=== PATIENT | male | born 1970 | race African-American/Black ===

== ENCOUNTER 2018-10-19 12:55 | Emergency (ER) | payer BC ==
[~2018-10-19] VITALS: Ht 177.8 cm; Wt 110.2 kg
[2018-10-19] MEDS ORDERED: LISINOPRIL-HCT1 EAC2 ORAL (13:04)
[2018-10-19 13:30] VITALS: BP 148/83
[2018-10-19] MEDS ORDERED: HYDROcodone/Acetamin 10/325 tab ORAL ONE (13:30)
[2018-10-19] MEDS ORDERED: Isovue-300 100ml vial INJ PRN (13:30)
--- NOTE | 2018-10-19 13:30 | NUR ---
ED Nurse Note: pt walked in due to pain on the left groin started 3 days ago and got worsen today, denies trauma. jose enrique muñoz on bedside. will continue to monitor.
--- NOTE | 2018-10-19 13:40 | NUR ---
ED Nurse Note: pt able to give urine, blood drawn and sent to lab. pt was able to tolerate po emds and ivf started. will continue to monitor.
--- NOTE | 2018-10-19 13:44 | NUR ---
ED Nurse Note: build technician on bedside.
[2018-10-19 13:55] LABS: APPEARANCE,URINE CLEAR; BILIRUBIN, URINE NEGATIVE (NEGATIVE); COLOR,URINE PALE YELLOW; GLUCOSE, URINE (UA) NEGATIVE (NEGATIVE); KETONES,URINE NEGATIVE (NEGATIVE); LEUKOCYTE ESTERASE ,URINE NEGATIVE (NEGATIVE); NITRITE,URINE NEGATIVE (NEGATIVE); PH,URINE 5 (4.5-8.0); PROTEIN,URINE NEGATIVE (NEGATIVE); UROBILINOGEN,URINE NORMAL MG/DL (0.0-1.0)
[2018-10-19 13:56] LABS: BASOPHILS % (AUTO) 0.6 % (0.0-2.0); EOSINOPHILS % (AUTO) 1.1 % (0.0-3.0); HEMATOCRIT 39.5 % (42.0-52.0); HEMOGLOBIN 12.9 G/DL (14.2-18.0); LYMPHOCYTES % (AUTO) 17.8 % (20.0-45.0); MEAN CORPUSCULAR VOLUME 84 FL (80-99); MONOCYTES % (AUTO) 11.2 % (1.0-10.0); NEUTROPHILS % (AUTO) 69.4 % (45.0-75.0); PLATELET COUNT 183 K/UL (150-450); RED BLOOD COUNT 4.68 M/UL (4.70-6.10); RED CELL DISTRIBUTION WIDTH 13.5 % (11.6-14.8); WHITE BLOOD COUNT 12.4 K/UL (4.8-10.8)
[2018-10-19 14:08] LABS: ANION GAP 4 mmol/L (5-15); BLOOD UREA NITROGEN 11 mg/dL (7-18); CALCIUM 9.4 MG/DL (8.5-10.1); CARBON DIOXIDE 27 MMOL/L (21-32); CHLORIDE 101 MMOL/L (98-107); POTASSIUM 3.8 MMOL/L (3.5-5.1); SODIUM 132 MMOL/L (136-145)
[2018-10-19 14:12] LABS: ALANINE AMINOTRANSFERASE 35 U/L (12-78); ALBUMIN 3.3 G/DL (3.4-5.0); ALBUMIN/GLOBULIN RATIO 0.7 (1.0-2.7); ALKALINE PHOSPHATASE 98 U/L (46-116); ASPARTATE AMINO TRANSFERASE 25 U/L (15-37); BILIRUBIN,TOTAL 0.5 MG/DL (0.2-1.0)
--- NOTE | 2018-10-19 14:24 | NUR ---
ED Nurse Note: pt went to ct with tech
--- NOTE | 2018-10-19 14:25 | Emergency Room Report ---
History of Present Illness General Chief Complaint: Pain Source: Patient Present Illness HPI 47 YO male presents to the ED c/o 12/08 in severity pain, swelling tenderness to the lower left buttock with radiation to the left testicle with testicular swelling and fullness x 2 days. pt. denies fevers or chills. 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 PT. reports recent unprotected intercourse, but denies penile discharge, dysuria, LAD, or urinary frequency/ urgency or hematuria. Pt. denies abdominal pain. Denies constipation or diarrhea. Allergies: Uncoded Allergies: DOXICYCLIN (Allergy, Unknown, 10/19/18) Patient History Past Medical History: see triage record, HTN Past Surgical History: none Pertinent Family History: none Reviewed Nursing Documentation: PMH: Agreed; PSxH: Agreed Nursing Documentation-PMH Past Medical History: No History, Except For Hx Hypertension: Yes Review of Systems All Other Systems: negative except mentioned in HPI Physical Exam Vital Signs Date Time Temp Pulse Resp B/P (MAP) Pulse Ox O2 Delivery O2 Flow Rate FiO2 10/19/18 12:57 98.2 105 19 148/83 (104) 93 Room Air Sp02 EP Interpretation: reviewed, normal General Appearance: no apparent distress, alert, GCS 15, non-toxic Head: normocephalic, atraumatic Eyes: bilateral eye normal inspection, bilateral eye PERRL ENT: hearing grossly normal, normal voice Neck: full range of motion Respiratory: chest non-tender, lungs clear, normal breath sounds, speaking full sentences Cardiovascular #1: regular rate, rhythm, no edema Gastrointestinal: normal bowel sounds, non tender, soft, non-distended, no guarding Rectal: deferred, tenderness - Left buttock in the perineum area 2cm deep palpable induration. , other Genitourinary: normal inspection, no CVA tenderness, penis normal, other - Testicular swelling, positive phren's sign, cremasteric reflex is intact. Musculoskeletal: back normal, gait/station normal, normal range of motion, non- tender Neurologic: alert, oriented x3, responsive, motor strength/tone normal, sensory intact, speech normal, grossly normal Psychiatric: judgement/insight normal Skin: other - palpable ST induration approx 2cm in the left buttock in the perineum area. Medical Decision Making PA Attestation Dr. Gonzalez is my supervising Physician whom patient management has been discussed with. Diagnostic Impression: Primary Impression: Epididymitis Additional Impression: Localized soft tissue swelling ER Course 47 YO male presents to the ED c/o 12/08 in severity pain, swelling tenderness to the lower left buttock with radiation to the left testicle with testicular swelling and fullness x 2 days. pt. denies fevers or chills. 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 PT. reports recent unprotected intercourse, but denies penile discharge, dysuria, LAD, or urinary frequency/ urgency or hematuria. Pt. denies abdominal pain. Denies constipation or diarrhea. Ddx considered but are not limited to perianal abscess/fistula, ST abscess, hydrocele, testicular torsion, epididymitis, orchitis, abscess, hernia Vital signs: are WNL, pt. is afebrile H&PE are most consistent with testicular torsion as cremasterics reflex is absent and then sign is negative there is no relief upon elevation ORDERS: - EKG: NSR [address] changes. -CBC: Elevated WBC's 12.9 -CMP: Unremarkable -lactic acid: WNL -Testicular US: epididymitis- Left -CT Pelvis W. Contrast: - Testicular US: consistent w. Epididymitis - CT Pelvis W. Contrast: 4.2 x 2 x 2.2 cm triangular area of low- attenuation in the expected region of the corpus spongiosum at the base of the penis. This could this represent a prominent posterior corpus spongiosum, but the possibility of abscess involving the corpus spongiosum should also be considered. Sonography may be useful for better characterization. ---- Pt. To return for 24 hour Follow up Ultra Sound Exam to Evaluate for developing/developed abscess. ED INTERVENTIONS: - Kathleen PO x 2 - 1 liter NS IV -Rocephin 250IU IM -Azithromycin 1g Admission was initially recommended for this patient in regard to possible abscess formation and need for repeat/follow up ultrasound evaluation to determine if abscess is developing in the areas that were mentioned as questionable in CT pelvis with contrast. This patient is very concerned with cost of admission, and he also reports that he has some things he needs to take care of with his work but he has full intentions on returning in 24 hours for ultrasound follow-up. Patient was in collaboration of this plan and has received antibiotics here in the emergency department as well as will be discharged with prescription for oral antibiotics in the case of noncompliance however patient goes assurance that he will return. At this time because there is no obvious abscess requiring surgical drainage I do not feel that this patient would require emergent admission tonight however close Follow up is necessary, recommended and has been planned for accordingly. Dr. Amador with general surgery has been familiarized with this pt.'s case and recommends US follow up tomorrow to determine if I & D will be necessary. - Please note that this Emergency Department Report was dictated using [employer] cutter technology software, occasionally this can lead to erroneous entry secondary to interpretation by the dictation equipment. DISCHARGE: At this time pt. is stable for d/c to home. PT to Return for 24 HOUR WOUND Follow UP for Ultra Sound Evaluation for Abscess development. Will provide printed patient care instructions, and any necessary prescriptions. Care plan and follow up instructions have been discussed with the patient prior to discharge. CT/MRI/US Diagnostic Results CT/MRI/US Diagnostic Results #1: Imaging Test Ordered: Testicular US Impression "Impression: Enlarged hyperemic left epididymis, consistent with epididymitis No evidence of testicular torsion Nonspecific prominence of the right epididymal head without increased vascularity Bilateral hydroceles with debris Small right varicocele"--- per official radiology report- Please see report for specific details. CT/MRI/US Diagnostic Results #2: Imaging Test Ordered: CT Pelvis With Contrast Impression " Impression: --- Prominent soft tissue in the inferior peroneal anterior to the anus to the left of midline. This does not have typical appearance have an abscess, could represent an area of inflammation/phlegmon ----4.2 x 2 x 2.2 cm triangular area of low-attenuation in the expected region of the corpus spongiosum at the base of the penis. This could this represent a prominent posterior corpus spongiosum, but the possibility of abscess involving the corpus spongiosum should also be considered. Sonography may be useful for better characterization. -----Equivocal mild bladder wall thickening, probably an artifact of under distention but cystitis possible ----Old bilateral scrotal hydroceles, right varicocele, also described on recent sonogram -----Incidental finding of small fat-containing right inguinal hernia" per official radiology report- Please see report for specific details. Last Vital Signs Date Time Temp Pulse Resp B/P (MAP) Pulse Ox O2 Delivery O2 Flow Rate FiO2 10/19/18 13:30 98.2 105 19 148/83 93 Room Air Status: improved Disposition: HOME, SELF-CARE Condition: Stable Physician Consult: Dr. Amador Scripts [Sitz Bath Ring ] No Conflict Check MC Q6HR for Sitz Bath, #1 Prov: Amara Womack 10/19/18 Cephalexin* (KEFLEX*) 500 Mg Capsule 500 MG ORAL EVERY 12 HOURS for 7 Days, #14 CAP 0 Refills Prov: Amara Womack 10/19/18 Trimethoprim/Sulfamethoxazole 160/800* (BACTRIM DS TABLET*) 1 Each Tablet 1 TAB ORAL TWICE A DAY for 7 Days, #14 TAB Prov: Amara Womack 10/19/18 Hydrocodone/Acetaminophen 10-300 Mg Tablet (VICODIN HP 10-300 MG TABLET) 1 Each Tablet 1 TAB ORAL Q6H PRN for For Pain, #6 TAB 0 Refills Prov: Amara Womack 10/19/18 Lidocaine Hcl (LIDOCAINE HCL) 28.35 Gm Cream..g. 1 APPLIC TP Q6H, #28.3 GM Prov: Amara Womack 10/19/18 Referrals: Dudley Peres MD (PCP) Additional Instructions: Take medications as directed. * 24 HOUR FOLLOW- UP with US to R/O Progression into Abscess Follow up with a Primary Care Provider in 3-5 days, even if your symptoms have resolved. --Please review list of primary care clinics, if you do not already have a primary care provider [ ] Return sooner to ED if new symptoms occur, or current symptoms become worse. Do not drink alcohol, drive, or operate heavy machinery while taking as this may cause drowsiness. - Please note that this Emergency Department Report was dictated using [employer] cutter technology software, occasionally this can lead to erroneous entry secondary to interpretation by the dictation equipment. Amara Womack Oct 19, 2018 14:25
--- NOTE | 2018-10-19 14:47 | Diagnostic Imaging Report ---
Indications: Scrotal pain Technique: Grayscale and duplex images of the scrotum Comparison: none Findings:The right testicle measures 3.6 cm in length. It demonstrates normal echogenicity. Normal Doppler flow. The epididymal head appears prominent and heterogeneous in echogenicity but not hyperemic. It demonstrates a 4 mm cyst. There is a small hydrocele with debris. There is also small varicocele. There is a 7 x 4 mm cyst at the periphery of the upper pole The left testicle measures for cm in length. It demonstrates normal echogenicity and normal Doppler flow. Epididymal head is enlarged and hyperemic. There is a small hydrocele which contains debris. Impression: Enlarged hyperemic left epididymis, consistent with epididymitis No evidence of testicular torsion Nonspecific prominence of the right epididymal head without increased vascularity Bilateral hydroceles with debris Small right varicocele Probable small peripheral right testicular cyst 4 mm cyst in the right epididymal head, either epididymal cyst or a spermatocele
[2018-10-19] MEDS ORDERED: Lidocaine 1% MPF 10mg/ml 5ml INJ ONE (15:30)
[2018-10-19] MEDS ORDERED: Levofloxacin 500mg tab ORAL ONE (15:30)
--- NOTE | 2018-10-19 15:35 | Diagnostic Imaging Report ---
Indication: Pain, possible perineal abscess or fistula. Technique: No oral contrast utilized.. IV administration nonionic contrast. Spiral acquisitions obtained through the pelvis. Multiplanar reconstructions generated. Total dose length product 1016.57 mGycm. CTDIvol(s) 25.48 mGy. Dose reduction achieved using automated exposure control Comparison: none Findings: There is slight stranding of the posterior perineal fat on the left, with some nodularity posteriorly. To the left of midline, just anterior an inferior to the anal orifice, there is a ovoid area of intermediate attenuation which measures 3.2 x 3 cm. Slightly superior and anterior to this, there is a triangular area of low-attenuation which this corresponds to the expected shape and location of the posterior aspect of the corpus spongiosum although is larger in caliber than would be expected this measures approximately 4.2 cm AP by 2 cm transverse by 2.2 cm craniocaudad. There are small bilateral scrotal hydroceles noted. There is a right varicocele noted. There is asymmetric enhancement of the left corpus cavernosum. This is probably physiologic There is a small left inguinal hernia which contains only fat. There is equivocal mild thickening of the bladder wall, probably an artifact of under distention. The remaining pelvic viscera are unremarkable in appearance. The bones are unremarkable. Impression: Prominent soft tissue in the inferior peroneal anterior to the anus to the left of midline. This does not have typical appearance have an abscess, could represent an area of inflammation/phlegmon 4.2 x 2 x 2.2 cm triangular area of low-attenuation in the expected region of the corpus spongiosum at the base of the penis. This could this represent a prominent posterior corpus spongiosum, but the possibility of abscess involving the corpus spongiosum should also be considered. Sonography may be useful for better characterization. 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
--- NOTE | 2018-10-19 16:21 | NUR ---
ED Nurse Note: pt was medicated as ordered. pt able to tolerate meds. will continuet reed cintron.
[2018-10-19] MEDS ORDERED: CEPHALEXIN500 MG ORAL (17:06)
[2018-10-19] MEDS ORDERED: LIDOCAINE HC28.35 GM TP (17:06)
[2018-10-19] MEDS ORDERED: VICODIN HP 10-1 EACH ORAL (17:06)
[2018-10-19] MEDS ORDERED: BACTRIM DS TAB1 EAC1 ORAL (17:06)
[2018-10-19] MEDS ORDERED: HYDROcodone/Acetamin 7.5/325 tab ORAL ONE (17:15)
[2018-10-19] MEDS ORDERED: Azithromycin 250mg tab ORAL ONE (17:15)
--- NOTE | 2018-10-19 17:21 | NUR ---
ED Nurse Note: pt complains of pain in the scrotal area. jose enrique pryor. pt medicated as ordered. pt able to tolerate. will continue to monitor
[2018-10-19] MEDS ORDERED: [UNRECOGNIZED DRUG - SUPPLY] MC (17:52)
[2018-10-19 17:55] VITALS: BP 140/80
--- NOTE | 2018-10-19 17:55 | NUR ---
ER DISCHARGE NOTE: Patient is cleared to be discharged per ERMD, pt is aox4, on room air, with stable vital signs. pt was given dc and prescription instructions, pt was able to verbalize understanding, pt id band and iv site removed without complications. pt is able to ambulate with steady gait. pt took all belongings.
[2018-10-20] MEDS ORDERED: IBU800 MG PO (14:26)
== END 2018-10-19 17:55 | disposition home or self-care (01) ==
LOC: EMR 13:19 → CANBEDREQ 17:43 → EMR 17:55
DX: N45.1 Epididymitis (principal); I10 Essential (primary) hypertension; Z88.8 Allergy status to other drugs, medicaments and biological substances; N13.30 Unspecified hydronephrosis; I86.1 Scrotal varices; K40.90 Unilateral inguinal hernia, without obstruction or gangrene, not specified as recurrent
CPT/HCPCS: 36415; 72193; 76870; 80053; 81003; 83605; 85025; 96360; 96372; 99284; J0696; Q9967

== ENCOUNTER 2018-10-20 12:37 | Emergency (ER) | payer BC, OTHER ==
[~2018-10-20] VITALS: Ht 177.8 cm; Wt 110.2 kg
[~2018-10-20 12:37] MED LIST: BACTRIM DS TAB1 EAC1 ORAL; CEPHALEXIN500 MG ORAL; LIDOCAINE HC28.35 GM TP; LISINOPRIL-HCT1 EAC2 ORAL; VICODIN HP 10-1 EACH ORAL; [UNRECOGNIZED DRUG - SUPPLY] MC
[2018-10-20 12:46] VITALS: BP 136/80
--- NOTE | 2018-10-20 12:47 | NUR ---
ED Nurse Note: Patient walked in to ER to be rechecked anal abscess as PA's recommendation from yesterday. Patient alert and oriented x4 and ambulatory. skin clean and intact. calm and cooperative.
--- NOTE | 2018-10-20 13:14 | NUR ---
ED Nurse Note: waiting for a surgeonPerry to come and assess to rule out abscess.
--- NOTE | 2018-10-20 13:29 | NUR ---
ED Nurse Note: Surgeon Perry at bedside.
[2018-10-20 13:40] LABS: BASOPHILS % (AUTO) 0.4 % (0.0-2.0); EOSINOPHILS % (AUTO) 1.1 % (0.0-3.0); HEMATOCRIT 40.8 % (42.0-52.0); HEMOGLOBIN 13.2 G/DL (14.2-18.0); MEAN CORPUSCULAR VOLUME 84 FL (80-99); MONOCYTES % (AUTO) 11.2 % (1.0-10.0); NEUTROPHILS % (AUTO) 70.2 % (45.0-75.0); PLATELET COUNT 231 K/UL (150-450); RED BLOOD COUNT 4.85 M/UL (4.70-6.10); RED CELL DISTRIBUTION WIDTH 13.4 % (11.6-14.8); WHITE BLOOD COUNT 13.8 K/UL (4.8-10.8)
[2018-10-20 13:45] LABS: ANION GAP 7 mmol/L (5-15); BLOOD UREA NITROGEN 13 mg/dL (7-18); CALCIUM 9.7 MG/DL (8.5-10.1); CARBON DIOXIDE 28 MMOL/L (21-32); CHLORIDE 101 MMOL/L (98-107); POTASSIUM 3.8 MMOL/L (3.5-5.1); SODIUM 136 MMOL/L (136-145)
[2018-10-20 13:50] LABS: ALANINE AMINOTRANSFERASE 40 U/L (12-78); ALBUMIN 3.5 G/DL (3.4-5.0); ALBUMIN/GLOBULIN RATIO 0.9 (1.0-2.7); ALKALINE PHOSPHATASE 101 U/L (46-116); ASPARTATE AMINO TRANSFERASE 34 U/L (15-37); BILIRUBIN,TOTAL 0.5 MG/DL (0.2-1.0)
--- NOTE | 2018-10-20 14:14 | Consultation ---
History of Present Illness General Date patient seen: Oct 20, 2018 Present Illness HPI This is a very pleasant 47-year-old male with history of pain and perianal fistula who presented to the emergency department yesterday complaining of worsening perineal pain. Patient states that he saw his primary care physician few days ago and was told to follow-up with a surgeon or urologist in the upcoming days but states that he was unable to get an appointment after making multiple attempts at calling specialist. Patient states that he did not feel significant better so he came to emergency room for evaluation yesterday. CT scan was performed and noted as below. Patient had leukocytosis 12,000. Patient was discharged with instructions to return if not improving. Patient returns today stating that he still feels the pain discomfort. He does not believe the ibuprofen is enough for pain control alone. Surgery is called to evaluate. Patient seen patient evaluated chart reviewed. Allergies: Uncoded Allergies: DOXICYCLIN (Allergy, Unknown, 10/19/18) Medication History Scheduled Cephalexin* (Keflex*), 500 MG ORAL EVERY 12 HOURS Lidocaine Hcl (Lidocaine Hcl), 1 APPLIC TP Q6H Lisinopril/Hydrochlorothiazide 20-25 Mg Tab (Lisinopril-Hctz 20-25 Mg Tab), 1 TAB ORAL DAILY, (Reported) Trimethoprim/Sulfamethoxazole 160/800* (Bactrim Ds Tablet*), 1 TAB ORAL TWICE A DAY Scheduled PRN Hydrocodone/Acetaminophen 10-300 Mg Tablet (Vicodin Hp 10-300 Mg Tablet), 1 TAB ORAL Q6H PRN for For Pain Durable Medical Equipment [Sitz Bath Ring ], MC Q6HR, (DME) Patient History History Provided By: Patient, Medical Record, PMD Healthcare decision maker Resuscitation status Advanced Directive on File Past Medical/Surgical History Past Medical/Surgical History: (1) Cellulitis of perineum Review of Systems Review of Symptoms General ROS: no weight loss or fever Psychological ROS: no depression or mood changes, no memory loss Ophthalmic ROS: no visual changes or eye irritation ENT ROS: no nasal congestion, hearing loss, dizziness Allergy and Immunology ROS: no allergic symptoms or urticaria Hematological and Lymphatic ROS: no swollen glands, unusual bleeding or bruising Endocrine ROS: no polyuria, polydipsia, weight changes, temperature intolerance Respiratory ROS: no cough, shortness of breath, or wheezing Cardiovascular ROS: no chest pain or dyspnea on exertion Gastrointestinal ROS: denies abdominal pain, no bright red blood in stool. Musculoskeletal ROS: no myalgias or arthralgias Neurological ROS: no TIA or stroke symptoms Dermatological ROS: no new or changing skin lesions, rashes or pruritis Physical Exam Physical Exam General appearance: alert, cooperative, no distress, appears stated age Head: Normocephalic, without obvious abnormality, atraumatic Eyes: conjunctivae/corneas clear. PERRL, EOM's intact. Fundi benign Throat: Lips, mucosa, and tongue normal. Teeth and gums normal Neck: supple, symmetrical, trachea midline, no adenopathy, thyroid: not enlarged, symmetric, no tenderness/mass/nodules, no carotid bruit and no JVD Lungs: clear to auscultation bilaterally Heart: regular rate and rhythm, S1, S2 normal, no murmur, click, rub or gallop Abdomen: soft, non-tender. Bowel sounds normal. No masses, no organomegaly Extremities: extremities normal, atraumatic, no cyanosis or edema Pulses: 2+ and symmetric Skin: Skin color, texture, turgor normal. No rashes or lesions Neurologic: Grossly normal Last 24 Hour Vital Signs Date Time Temp Pulse Resp B/P (MAP) Pulse Ox O2 Delivery O2 Flow Rate FiO2 10/20/18 12:46 97.9 72 16 136/80 96 Room Air 10/20/18 12:39 97.9 84 16 136/80 (98) 96 Room Air Laboratory Tests Test 10/20/18 13:30 White Blood Count 13.8 K/UL (4.8-10.8) H Red Blood Count 4.85 M/UL (4.70-6.10) Hemoglobin 13.2 G/DL (14.2-18.0) L Hematocrit 40.8 % (42.0-52.0) L Mean Corpuscular Volume 84 FL (80-99) Mean Corpuscular Hemoglobin 27.1 PG (27.0-31.0) Mean Corpuscular Hemoglobin Concent 32.3 G/DL (32.0-36.0) Red Cell Distribution Width 13.4 % (11.6-14.8) Platelet Count 231 K/UL (150-450) Mean Platelet Volume 7.4 FL (6.5-10.1) Neutrophils (%) (Auto) 70.2 % (45.0-75.0) Lymphocytes (%) (Auto) 17.0 % (20.0-45.0) L Monocytes (%) (Auto) 11.2 % (1.0-10.0) H Eosinophils (%) (Auto) 1.1 % (0.0-3.0) Basophils (%) (Auto) 0.4 % (0.0-2.0) Erythrocyte Sedimentation Rate Pending Prothrombin Time Pending Prothromb Time International Ratio Pending Activated Partial Thromboplast Time Pending Sodium Level 136 MMOL/L (136-145) Potassium Level 3.8 MMOL/L (3.5-5.1) Chloride Level 101 MMOL/L (98-107) Carbon Dioxide Level 28 MMOL/L (21-32) Anion Gap 7 mmol/L (5-15) Blood Urea Nitrogen 13 mg/dL (7-18) Creatinine 1.0 MG/DL (0.55-1.30) Estimat Glomerular Filtration Rate > 60 mL/min (>60) Glucose Level 107 MG/DL (74-106) H Calcium Level 9.7 MG/DL (8.5-10.1) Total Bilirubin 0.5 MG/DL (0.2-1.0) Aspartate Amino Transf (AST/SGOT) 34 U/L (15-37) Alanine Aminotransferase (ALT/SGPT) 40 U/L (12-78) Alkaline Phosphatase 101 U/L (46-116) C-Reactive Protein, Quantitative 28.7 mg/dL (0.00-0.90) H Total Protein 7.5 G/DL (6.4-8.2) Albumin 3.5 G/DL (3.4-5.0) Globulin 4.0 g/dL Albumin/Globulin Ratio 0.9 (1.0-2.7) L Height (Feet): 5 Height (Inches): 10.00 Weight (Pounds): 243 Assessment/Plan Problem List: (1) Cellulitis of perineum Assessment & Plan: Impression: Prominent soft tissue in the inferior peroneal anterior to the anus to the left of midline. This does not have typical appearance have an abscess, could represent an area of inflammation/phlegmon 4.2 x 2 x 2.2 cm triangular area of low-attenuation in the expected region of the corpus spongiosum at the base of the penis. This could this represent a prominent posterior corpus spongiosum, but the possibility of abscess involving the corpus spongiosum should also be considered. Sonography may be useful for better characterization. 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, right varicocele, also described on recent sonogram Incidental finding of small fat-containing right inguinal hernia Impression: Enlarged hyperemic left epididymis, consistent with epididymitis No evidence of testicular torsion Nonspecific prominence of the right epididymal head without increased vascularity Bilateral hydroceles with debris Small right varicocele Probable small peripheral right testicular cyst 4 mm cyst in the right epididymal head, either epididymal cyst or a spermatocele ICD Codes: L03.315 - Cellulitis of perineum SNOMED: [id number] Assessment/Plan: On examination there is no abscess identified. There is mild edema but no significant cellulitis as well. Patient states he is uncomfortable from around the testes to the perineal area. The perirectal area is benign. No fistula abscess or other abnormality is identified. Given these findings and above findings patient likely has epididymitis. Patient with leukocytosis. We discussed inpatient management versus outpatient management. I explained to patient that admission with IV antibiotics until improved is recommended but if unavailable can be managed with oral biotics outpatient with close follow-up by his primary care physician and specialist as an outpatient. Patient needs to ensure that he can get outpatient care with his insurance plan. Francisco Amador Oct 20, 2018 14:14
--- NOTE | 2018-10-20 14:17 | NUR ---
ED Nurse Note: surgeon Perry at bedside again.
[2018-10-20 14:20] LABS: INR 1.1 (0.9-1.1)
[2018-10-20 14:22] LABS: APPEARANCE,URINE CLEAR; BILIRUBIN, URINE NEGATIVE (NEGATIVE); COLOR,URINE PALE YELLOW; GLUCOSE, URINE (UA) NEGATIVE (NEGATIVE); KETONES,URINE NEGATIVE (NEGATIVE); LEUKOCYTE ESTERASE ,URINE NEGATIVE (NEGATIVE); NITRITE,URINE NEGATIVE (NEGATIVE); PH,URINE 5 (4.5-8.0); PROTEIN,URINE NEGATIVE (NEGATIVE); UROBILINOGEN,URINE NORMAL MG/DL (0.0-1.0)
--- NOTE | 2018-10-20 14:23 | Emergency Room Report ---
History of Present Illness General Chief Complaint: Wound Recheck/Suture Removal Source: Patient, Medical Record, PMD Present Illness HPI 47-year-old male with no significant past medical history here for follow-up visit per recommendation of Amara who saw him at [facility] yesterday. Patient was diagnosed with epididymitis. Patient has a history of anal fistula and has been complaining of anal pain. Patient also complains of pus drainage from the anus x2 days. Denies fever and chills rating the pain 10 out of 10 with radiation from back to the testicles. Ultrasound of the scrotum as well as CT abdomen pelvis was done yesterday. Patient was advised to come back today as he refused to be admitted yesterday for Dr. Amador need to examine him and to ultrasound of the anal region to rule out abscess or fistula. Patient has a stable vital signs today complains of a lot of pain upset that the provider from yesterday is not here today to follow-up on him. Dr. Amador he examined the patient labs were ordered and Dr. Amador consulted him to follow-up with his primary care physician Dr. Newman and take ibuprofen for pain as well as continuation of his antibiotics. Patient keeps pushing for more narcotics he was given a prescription for [place] 10 mg yesterday the quantity #6 every 6 hours and he said that he took them all at once and he still has pain he was something even stronger. Patient has a very drug-seeking behavior keeps interrupting me using ibuprofen does not work give me few more pills of something stronger than [place] 10 to get me through today as I had to go to back to work in order to get paid. After I offered the patient to take a work note from us today he refused and he refused to go see his primary care physician today. Patient also try to ask the nurse when Amara is coming back and wanted to schedule of the physician assistants. Dr. Amador agrees with me on discharge the patient with the proper pain management and giving ibuprofen 800 mg. Patient denies chest pain, shortness of breath, palpitation, fever and chills, nausea vomiting. Allergies: Uncoded Allergies: DOXICYCLIN (Allergy, Unknown, 10/19/18) Patient History Past Medical History: see triage record Past Surgical History: unable to obtain Pertinent Family History: none Immunizations: UTD Reviewed Nursing Documentation: PMH: Agreed; PSxH: Agreed Nursing Documentation-PMH Past Medical History: No History, Except For Hx Hypertension: Yes Review of Systems All Other Systems: negative except mentioned in HPI Physical Exam Vital Signs Date Time Temp Pulse Resp B/P (MAP) Pulse Ox O2 Delivery O2 Flow Rate FiO2 10/20/18 12:39 97.9 84 16 136/80 (98) 96 Room Air Sp02 EP Interpretation: reviewed, normal General Appearance: normal inspection, well appearing, no apparent distress, alert, GCS 15 Head: normocephalic, atraumatic Eyes: bilateral eye normal inspection, bilateral eye PERRL ENT: normal ENT inspection, normal pharynx Neck: normal inspection, full range of motion, supple, thyroid normal, no carotid bruits Respiratory: normal inspection, lungs clear, no rhonchi, no wheezing Cardiovascular #1: normal inspection, normal peripheral pulses, regular rate, rhythm, no murmur, normal capillary refill Gastrointestinal: normal inspection, normal bowel sounds, non tender, soft, no mass Rectal: deferred Genitourinary: no CVA tenderness Musculoskeletal: normal inspection, back normal, digits/nails normal Psychiatric: normal inspection, judgement/insight normal Skin: no rash, palpation normal Lymphatic: normal inspection, no adenopathy Medical Decision Making PA Attestation All my diagnosis and treatment plans were reviewed ad discussed with my supervising physician Dr. Muñiz Diagnostic Impression: Primary Impression: Epididymitis ER Course 47-year-old male with no significant past medical history here for follow-up visit per recommendation of Amara who saw him at [facility] yesterday. Patient was diagnosed with epididymitis. Patient has a history of anal fistula and has been complaining of anal pain. Patient also complains of pus drainage from the anus x2 days. Denies fever and chills rating the pain 10 out of 10 with radiation from back to the testicles. Ultrasound of the scrotum as well as CT abdomen pelvis was done yesterday. Patient was advised to come back today as he refused to be admitted yesterday for Dr. Amador need to examine him and to ultrasound of the anal region to rule out abscess or fistula. Patient has a stable vital signs today complains of a lot of pain upset that the provider from yesterday is not here today to follow-up on him. Dr. Amador he examined the patient labs were ordered and Dr. Amador consulted him to follow-up with his primary care physician Dr. Newman and take ibuprofen for pain as well as continuation of his antibiotics. Patient keeps pushing for more narcotics he was given a prescription for [place] 10 mg yesterday the quantity #6 every 6 hours and he said that he took them all at once and he still has pain he was something even stronger. Patient has a very drug-seeking behavior keeps interrupting me using ibuprofen does not work give me few more pills of something stronger than [place] 10 to get me through today as I had to go to back to work in order to get paid. After I offered the patient to take a work note from us today he refused and he refused to go see his primary care physician today. Patient also try to ask the nurse when Amara is coming back and wanted to schedule of the physician assistants. Dr. Amador agrees with me on discharge the patient with the proper pain management and giving ibuprofen 800 mg. Patient denies chest pain, shortness of breath, palpitation, fever and chills, nausea vomiting. Ddx considered but are not limited to: appendicitis, cholecystis, gastritis, anal fistula, anal abscess, complicated epididymitis Vital signs: are WNL, pt. is afebrile H&PE are most consistent with: Uncomplicated epididymitis ORDERS: BC, CMP, UA, PT and PTT and INR, ESR and CRP ED INTERVENTIONS: Toradol 60 DISCHARGE: At this time pt. is stable for d/c to home. Will provide printed patient care instructions, and any necessary prescriptions. Care plan and follow up instructions have been discussed with the patient prior to discharge. Patient was consulted by Dr. Nicho rodgers twice and both times was told to follow-up with a primary care provider and ibuprofen should be enough however patient tried to tell me that Dr. Amador he said otherwise I spoke with Dr. Amador and he agrees with discharge with ibuprofen but the family is aware of the blood results. Patient has extreme drug-seeking behavior and wants to come back to the ER when a different provider is working. Patient stable at time of discharge White blood cell 13.8, elevated ESR and CRP Last Vital Signs Date Time Temp Pulse Resp B/P (MAP) Pulse Ox O2 Delivery O2 Flow Rate FiO2 10/20/18 12:46 97.9 72 16 136/80 96 Room Air Disposition: HOME, SELF-CARE Condition: Stable Scripts Ibuprofen (Ibu) 800 Mg Tablet 800 MG PO TID, #30 TAB Prov: Kiet Alexander 10/20/18 Referrals: Dudley Peres MD (PCP) Patient Instructions: Epididymitis Additional Instructions: Follow-up with a primary care provider if symptoms continue after talking to Dr. Amador, you are able to be discharged with ibuprofen and continue taking her antibiotics that were given to you yesterday if worsening symptoms return to the emergency room. Kiet Alexander Oct 20, 2018 14:23
[2018-10-20] MEDS ORDERED: IBU800 MG PO (14:26)
--- NOTE | 2018-10-20 14:29 | NUR ---
ED Nurse Note: ERPA at bedside.
--- NOTE | 2018-10-20 14:38 | NUR ---
ED Nurse Note: pt is requesting more pain medication to take home. pt is saying ibuprofen is not enough. pt reported that the pain medication he was prescribed yesterday he took every 4 hours instead of every 6 hours as instructed. SLIMA speaking to the pt.
[2018-10-20 14:44] VITALS: BP 136/80
[2018-10-20] MEDS ORDERED: Ketorolac 60mg Inj IM ONE (14:45)
--- NOTE | 2018-10-20 14:46 | NUR ---
ER DISCHARGE NOTE: Patient is cleared to be discharged per ERPA, pt is aox4, on room air, with stable vital signs. pt was given dc and prescription instructions, pt was able to verbalize understanding but still asked for more pain medication prescriptions, ERPA and Surgeon Perry agreed with Ibuprofen will be effective. pt id band and iv site removed without complications. pt is able to ambulate with steady gait. pt took all belongings.
== END 2018-10-20 14:47 | disposition home or self-care (01) ==
LOC: EMR 13:00
DX: N45.1 Epididymitis (principal); Z88.8 Allergy status to other drugs, medicaments and biological substances; I10 Essential (primary) hypertension
CPT/HCPCS: 36415; 80053; 81001; 85025; 85610; 85651; 85730; 86140; 86850; 86900; 86901; 96372; 99284

== ENCOUNTER → 2020-02-28 | Outpatient (CLI) | payer BC, OTHER ==
[~2020-02-28] MED LIST changes: +IBU800 MG PO
--- NOTE | 2020-02-28 15:06 | Diagnostic Imaging Report ---
Indication: Cough Technique: 2 views of the chest Comparison: None Findings: Lungs and pleural spaces are clear. The heart size is normal. The bones are unremarkable. No significant interim change. Impression: Negative
== END | disposition home or self-care (01) ==
LOC: RAD 11:44
DX: Z01.818 Encounter for other preprocedural examination (principal); R05 Cough
CPT/HCPCS: 71046